=== PATIENT | female | born 1990 | race Caucasian/White ===

== ENCOUNTER 2016-03-07 15:46 | Emergency (ER) | payer BC ==
[2016-03-07 19:05] VITALS: BP 117/81
--- NOTE | 2016-03-07 19:39 | UC ---
Throat Pain/Nasal Jose Maria HPI - HPI Summary HPI Summary: THREE DAYS OF WORSENING SORE THROAT AND REDNESS. NO FEVER. NO RASHES. NO ABDOMINAL PAIN. - History of Current Complaint Chief Complaint: UCGeneralIllness Stated Complaint: SORE THROAT Time Seen by Provider: 03/07/16 19:01 Hx Obtained From: Patient Hx Last Menstrual Period: 02/15/16 Onset/Duration: Gradual Onset, Lasting Days, Still Present Severity: Mild Cough: None Associated Signs & Symptoms: Positive: Dysphagia, Hoarseness - Epiglottits Risk Factors Epiglottis Risk Factors: Negative - Allergies/Home Medications Allergies/Adverse Reactions: Allergies Allergy/AdvReac Type Severity Reaction Status Date / Time Bacitracin [From Neosporin] Allergy Hives Verified 06/16/15 19:19 Iodine Allergy Anaphylatic Verified 03/07/16 18:52 Shock Neomycin [From Neosporin] Allergy Hives Verified 06/16/15 19:19 Polymyxin B [From Neosporin] Allergy Hives Verified 06/16/15 19:19 IV CONTRAST Allergy Anaphylatic Uncoded 03/07/16 18:52 Shock Home Medications: Home Medications Fluticasone-Salmeterol 100-50* [Advair Diskus 100-50*] 1 puff INH BID 03/07/16 [ History Confirmed 03/07/16] PMH/Surg Hx/FS Hx/Imm Hx Previously Healthy: Yes Respiratory History Of: Reports: Asthma - Surgical History Surgical History: None - Family History Known Family History: Positive: None Negative: Respiratory Disease - Social History Occupation: Student Alcohol Use: Weekly Substance Use Type: None Smoking Status (MU): Never Smoked Tobacco Review of Systems Constitutional: Negative Skin: Negative Eyes: Negative ENT: Sore Throat Respiratory: Negative Cardiovascular: Negative Gastrointestinal: Negative Genitourinary: Negative Motor: Negative Neurovascular: Negative Musculoskeletal: Negative Neurological: Negative Psychological: Negative All Other Systems Reviewed And Are Negative: Yes Physical Exam Triage Information Reviewed: Yes Appearance: Well-Appearing, No Pain Distress, Well-Nourished Vital Signs: Initial Vital Signs Temp 98.1 F 03/07/16 18:49 Pulse 80 03/07/16 18:49 Resp 16 03/07/16 18:49 BP 117/81 03/07/16 18:49 Pulse Ox 99 03/07/16 18:49 Vital Signs Reviewed: Yes Eye Exam: Normal ENT: Positive: Hearing grossly normal, Pharyngeal erythema, TMs normal, Tonsillar swelling Dental Exam: Normal Neck exam: Normal Neck: Positive: Supple, Nontender Respiratory Exam: Normal Respiratory: Positive: Chest non-tender, Lungs clear, Normal breath sounds, No respiratory distress Cardiovascular Exam: Normal Cardiovascular: Positive: RRR, No Murmur, Pulses Normal Abdominal Exam: Normal Abdomen Description: Positive: Nontender, No Organomegaly Musculoskeletal Exam: Normal Neurological Exam: Normal Psychological Exam: Normal Skin Exam: Normal Throat Pain/Nasal Course/Dx - Differential Dx/Diagnosis Differential Diagnosis/HQI/PQRI: Pharyngitis, Sinusitis, URI Provider Diagnoses: TONSILLITIS. VIRAL SYNDROME Discharge - Discharge Plan Condition: Stable Disposition: HOME Patient Education Materials: Tonsillitis (ED), Viral Syndrome (ED) Forms: *School Release Referrals: Jody Vale [Primary Care Provider] -
== END 2016-03-07 19:47 | disposition home or self-care (01) ==
LOC: UCCORT 15:46
DX: J03.90 Acute tonsillitis, unspecified (principal); B34.9 Viral infection, unspecified; Z91.041 Radiographic dye allergy status
CPT/HCPCS: 87651; 99211; G0463

== ENCOUNTER 2016-05-16 18:57 | Emergency (ER) | payer BC ==
[2016-05-16 20:19] VITALS: BP 124/87
--- NOTE | 2016-05-16 20:31 | UC ---
Skin Complaint HPI - HPI Summary HPI Summary: History of shingles onright side of face, she is getting the same pain, some mild redness noted. eye pain and ear pain. - History of Current Complaint Chief Complaint: UCSkin Time Seen by Provider: 05/16/16 20:19 Stated Complaint: SKIN COMPLAINT (HX OF SHINGLES) Hx Obtained From: Patient Hx Last Menstrual Period: 05/07/16 Onset/Duration: Sudden Onset, Lasting Days Skin Exposure Onset/Duration: Days Ago Timing: Constant Onset Severity: Moderate Current Severity: Moderate Location: Generalized - right side of face Character: Pruritus, Redness Aggravating: Nothing Alleviating: Nothing - Allergy/Home Medications Allergies/Adverse Reactions: Allergies Allergy/AdvReac Type Severity Reaction Status Date / Time Bacitracin [From Neosporin] Allergy Hives Verified 05/16/16 20:15 Iodine Allergy Anaphylatic Verified 05/16/16 20:15 Shock Neomycin [From Neosporin] Allergy Hives Verified 05/16/16 20:15 Polymyxin B [From Neosporin] Allergy Hives Verified 05/16/16 20:15 IV CONTRAST Allergy Anaphylatic Uncoded 05/16/16 20:15 Shock Home Medications: Home Medications Fexofenadine-Pseudoephedrine [Maira-D 24 Hour Allergy 180-240 mg] 1 tab DAILY 05/16/16 [History Confirmed 05/16/16] Review of Systems Constitutional: Negative Skin: Other - redness Eyes: Negative, Other - pain ENT: Negative, Ear Ache, Other Respiratory: Negative Cardiovascular: Negative Gastrointestinal: Negative Genitourinary: Negative Motor: Negative Neurovascular: Negative Musculoskeletal: Negative Neurological: Negative Psychological: Negative All Other Systems Reviewed And Are Negative: Yes PMH/Surg Hx/FS Hx/Imm Hx Previously Healthy: Yes Respiratory History Of: Reports: Asthma - Surgical History Surgical History: None - Family History Known Family History: Negative: Hypertension, Respiratory Disease - Social History Alcohol Use: Occasionally Substance Use Type: None Smoking Status (MU): Never Smoked Tobacco - Immunization History Most Recent Influenza Vaccination: 2016 Most Recent Tetanus Shot: UTD Most Recent Pneumonia Vaccination: N/A Physical Exam Triage Information Reviewed: Yes Appearance: Well-Appearing, Well-Nourished, Pain Distress Vital Signs: Initial Vital Signs Temp 97.9 F 05/16/16 20:16 Pulse 87 05/16/16 20:16 Resp 18 05/16/16 20:16 BP 124/87 05/16/16 20:16 Pulse Ox 100 05/16/16 20:16 Vital Signs Reviewed: Yes Eye Exam: Normal Eyes: Positive: Conjunctiva Clear ENT Exam: Normal ENT: Positive: Hearing grossly normal, Pharynx normal, TMs normal Dental Exam: Normal Neck exam: Normal Neck: Positive: Supple, Nontender, No Lymphadenopathy Respiratory Exam: Normal Respiratory: Positive: Chest non-tender, Lungs clear, Normal breath sounds Cardiovascular Exam: Normal Cardiovascular: Positive: RRR, No Murmur, Pulses Normal Abdominal Exam: Normal Abdomen Description: Positive: Nontender, No Organomegaly, Soft Bowel Sounds: Positive: Present Musculoskeletal Exam: Normal Musculoskeletal: Positive: Strength Intact, ROM Intact, No Edema Neurological Exam: Normal Neurological: Positive: Alert, Muscle Tone Normal, Other: - PERRLA, Skin: Positive: Other - red rash onted on side of face, no blisters described as itchy and painful Course/Dx - Course Course Of Treatment: hx obtained, exam performed, meds reviewed, HX of shingles along that dermatome last year, patient states the pain and itching feel the same. Started on Valtrex and recommend close F/U with her PCP. - Differential Diagnoses - Skin Complaint Differential Diagnoses: Angioedema, Cellulitis, Contact Dermatitis, Varicella Zoster - Diagnoses Provider Diagnoses: rash. pruritis. possible shingles Discharge - Discharge Plan Condition: Stable Disposition: HOME Prescriptions: ValACYclovir (*) [Valtrex 1 GM(*)] 1 gm PO TID #21 tab Patient Education Materials: Shingles (ED) Referrals: Jody Vale [Primary Care Provider] - Additional Instructions: Take the Valtrex as prescribed. I recommend close follow up with you PCP for pain control and monitoring of symptoms.
== END 2016-05-16 20:30 | disposition home or self-care (01) ==
LOC: UCCORT 18:57
DX: R21 Rash and other nonspecific skin eruption (principal); L29.9 Pruritus, unspecified; J45.909 Unspecified asthma, uncomplicated; Z91.041 Radiographic dye allergy status
CPT/HCPCS: 99212; G0463

== ENCOUNTER 2016-05-21 09:33 | Emergency (ER) | payer BC ==
[2016-05-21 10:30] VITALS: BP 119/81
[2016-05-21] MEDS ORDERED: Tetracaine 0.5% OPTH.SOL 4 ML* 1 DROP BTL ONE (10:44)
[2016-05-21] MEDS ORDERED: Fluorescein Sodium TOPICAL* 1 MG TEST ONE (10:44)
[2016-05-21] MEDS ORDERED: BSS OPTH.SOL* BTL ONE (10:44)
--- NOTE | 2016-05-21 11:47 | UC ---
Eye Complaint HPI - HPI Summary HPI Summary: DIAGNOSED WITH SHINGLES 05/16/16 FOR RIGHT EYE COMPLAINTS AND HISTORY OF SHINGLES IN THE PAST. PUT ON VALCYCLOVIR. HAS BEEN HAVING NAUSEA WITH MEDICATION , WELL PAIN AND PARESTHESIAS IN RIGHT SIDE OF FACE THAT HAVE GONE UNCHANGED WITH TREATMENT. - History of Current Complaint Chief Complaint: UCSkin Stated Complaint: RE CHECK SHINGLES Time Seen by Provider: 05/21/16 10:26 Hx Obtained From: Patient Hx Last Menstrual Period: 05/07/16 Onset/Duration: Sudden Onset, Lasting Days, Still Present Timing: Intermittent Episode Lasting Severity Initially: Mild Severity Currently: Moderate Pain Intensity: 0 Pain Scale Used: 0-10 Numeric Location of Injury: Other - LATERAL RIGHT SIDE OF FACE NEAR RIGHT EYE Character: Dull - BURNING AND TINGLING Aggravating Factor(s): Nothing Alleviating Factor(s): Nothing Associated Signs And Symptoms: Positive: Negative Related History: Similar Episode - SHINGLES RIGHT FACE - Risk Factors Penetrating Injury Risk Factor: Negative Acute Glaucoma Risk Factors: Negative Optic Artery Occlusion Risk Factors: Negative - Allergies/Home Medications Allergies/Adverse Reactions: Allergies Allergy/AdvReac Type Severity Reaction Status Date / Time Bacitracin [From Neosporin] Allergy Hives Verified 05/21/16 10:23 Iodine Allergy Anaphylatic Verified 05/21/16 10:23 Shock Neomycin [From Neosporin] Allergy Hives Verified 05/21/16 10:23 Polymyxin B [From Neosporin] Allergy Hives Verified 05/21/16 10:23 IV CONTRAST Allergy Anaphylatic Uncoded 05/21/16 10:23 Shock Home Medications: Home Medications Acetaminophen [Acetaminophen Extra Stren] 1,000 mg PO Q6H PRN 05/21/16 [History Confirmed 05/21/16] Albuterol HFA INHALER* [Ventolin HFA Inhaler*] 1 - 2 puff INH Q4H PRN 05/21/16 [ History Confirmed 05/21/16] Capsaicin 0.025% CREAM* [Zostrix 0.025% CREAM*] 1 applic TOPICAL QID PRN [History Confirmed 05/21/16] Epinephrine [Epipen 2-James] 0.3 mg IM SEE INSTRUCTIONS PRN 05/21/16 [History Confirmed 05/21/16] Ibuprofen TAB* [Advil TAB*] 800 mg PO Q6H PRN 05/21/16 [History Confirmed ] PMH/Surg Hx/FS Hx/Imm Hx Previously Healthy: Yes Respiratory History Of: Reports: Asthma - Surgical History Surgical History: None - Family History Known Family History: Negative: Hypertension, Respiratory Disease - Social History Occupation: Student Lives: With Family Alcohol Use: Occasionally Substance Use Type: None Smoking Status (MU): Never Smoked Tobacco - Immunization History Most Recent Influenza Vaccination: October 2015 Most Recent Tetanus Shot: UTD Most Recent Pneumonia Vaccination: N/A Review of Systems Constitutional: Negative Skin: Negative Eyes: Negative ENT: Negative Respiratory: Negative Cardiovascular: Negative Gastrointestinal: Negative Genitourinary: Negative Motor: Negative Neurovascular: Negative Musculoskeletal: Negative Neurological: Paresthesia - RIGHT SUPERIOLATERAL FACE Psychological: Negative All Other Systems Reviewed And Are Negative: Yes Physical Exam Triage Information Reviewed: Yes Appearance: Well-Appearing, No Pain Distress, Well-Nourished Vital Signs: Initial Vital Signs Temp 98.5 F 05/21/16 10:19 Pulse 82 05/21/16 10:19 Resp 16 05/21/16 10:19 BP 119/81 05/21/16 10:19 Pulse Ox 100 05/21/16 10:19 Vital Signs Reviewed: Yes Eye Exam: Normal ENT Exam: Normal ENT: Positive: Normal ENT inspection, Hearing grossly normal, Pharynx normal, TMs normal Dental Exam: Normal Neck exam: Normal Neck: Positive: Supple, Nontender, No Lymphadenopathy Respiratory Exam: Normal Respiratory: Positive: Chest non-tender, Lungs clear, Normal breath sounds, No respiratory distress, No accessory muscle use Cardiovascular Exam: Normal Cardiovascular: Positive: RRR, No Murmur Abdominal Exam: Normal Musculoskeletal Exam: Normal Musculoskeletal: Positive: Strength Intact, ROM Intact Neurological Exam: Normal Psychological Exam: Normal Skin Exam: Normal Eye Complaint Course/Dx - Course Course Of Treatment: ANTIVIRAL MEDICATION SWITCHED DUE TO NAUSEA. 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
== END 2016-05-21 11:20 | disposition home or self-care (01) ==
LOC: UCCORT 09:33
DX: B02.29 Other postherpetic nervous system involvement (principal); B02.9 Zoster without complications
CPT/HCPCS: 99212; A9270-GY; G0463

== ENCOUNTER → 2016-06-16 18:25 | Emergency (ER) | payer SELFPAY ==
[~2016-06-16 18:25] MED LIST: PPD test dose* 5 TU/0.1 ML TEST (*USE PPD ORDER SET*) INTRADERM ONE
== END | disposition home or self-care (01) ==
LOC: OHCORT 18:25 → UCCORT 18:25
DX: Z11.1 Encounter for screening for respiratory tuberculosis (principal)

== ENCOUNTER 2016-08-23 15:16 | Emergency (ER) | payer BC ==
[2016-08-23 15:29] VITALS: BP 129/76
--- NOTE | 2016-08-23 15:38 | UC ---
Complaint Female HPI - HPI Summary HPI Summary: complaint of seen in ED 08/16/16 left flank pain, dx with kidney stone,infection and UTI- sent home on macrobid,zofran and vicodin currently still having pain with urination , increased urgency, left flank pain and nausea taking ibuprofen for pain for without much relief intermittent fever since last week intermittent suprapubic pain poor appetite but able to drink fluids without difficulty has apt with PCP but not until monday08/26/16 - History Of Current Complaint Chief Complaint: UCGU Stated Complaint: LFT LOWER BACK PAIN/URINARY Hx Obtained From: Patient Hx Last Menstrual Period: 08/02/16 - Allergies/Home Medications Allergies/Adverse Reactions: Allergies Allergy/AdvReac Type Severity Reaction Status Date / Time Bacitracin [From Neosporin] Allergy Hives Verified 08/23/16 15:20 Iodine Allergy Anaphylatic Verified 08/23/16 15:20 Shock Neomycin [From Neosporin] Allergy Hives Verified 08/23/16 15:20 Polymyxin B [From Neosporin] Allergy Hives Verified 08/23/16 15:20 IV CONTRAST Allergy Anaphylatic Uncoded 08/23/16 15:20 Shock Home Medications: Home Medications Budesonide/Formote 160/4.5(NF) [Symbicort 160/4.5 (NF)] 1 puff INH BID 08/23/16 [History Confirmed 08/23/16] Ibuprofen TAB* [Advil TAB*] 600 mg PO Q6H PRN 08/23/16 [History Confirmed ] LevoCETirizine TAB (NF) [Xyzal TAB (NF)] 5 mg PO DAILY 08/23/16 [History Confirmed 08/23/16] busPIRone TAB* [Buspar TAB*] 5 mg PO DAILY 08/23/16 [History Confirmed 08/23/16] hydrOXYzine HCL TAB* [Atarax 10 MG TAB*] 10 mg PO TID PRN 08/23/16 [History Confirmed 08/23/16] PMH/Surg Hx/FS Hx/Imm Hx Previously Healthy: No - UTI, pyleonephritis, kidney stones Respiratory History: Asthma Psychological History: Anxiety, Depression - Surgical History Surgical History: None - Family History Known Family History: Negative: Hypertension, Diabetes, Respiratory Disease - Social History Occupation: Student Lives: With Family Alcohol Use: Occasionally Substance Use Type: None Smoking Status (MU): Never Smoked Tobacco - Immunization History Most Recent Influenza Vaccination: October 2015 Most Recent Tetanus Shot: UTD Most Recent Pneumonia Vaccination: N/A Review of Systems Constitutional: Fever, Chills Skin: Negative Eyes: Negative ENT: Negative Respiratory: Negative Cardiovascular: Negative Gastrointestinal: Abdominal Pain Genitourinary: Dysuria, Frequency, Urgency Motor: Negative Neurovascular: Negative Musculoskeletal: Negative Neurological: Negative Psychological: Negative All Other Systems Reviewed And Are Negative: Yes Physical Exam Triage Information Reviewed: Yes Appearance: Well-Appearing, No Pain Distress, Well-Nourished Vital Signs: Initial Vital Signs Temp 99.5 F 08/23/16 15:24 Pulse 89 08/23/16 15:24 Resp 18 08/23/16 15:24 BP 129/76 08/23/16 15:24 Pulse Ox 100 08/23/16 15:24 Vital Signs Reviewed: Yes Eyes: Positive: Conjunctiva Clear ENT: Positive: Pharynx normal, TMs normal Neck: Positive: No Lymphadenopathy Respiratory: Positive: Lungs clear, Normal breath sounds, No respiratory distress, No accessory muscle use Cardiovascular: Positive: RRR, No Murmur, Pulses Normal, Brisk Capillary Refill Abdomen Description: Positive: Nontender, No Organomegaly, Soft, CVA Tenderness (L). Negative: CVA Tenderness (R), Distended, Guarding Bowel Sounds: Positive: Present Musculoskeletal: Positive: No Edema Neurological: Positive: Alert Psychological Exam: Normal Skin Exam: Normal Complaint Female Dx - Course Course Of Treatment: exam completed. UA positive for leuks- pt has left CVA tenderness- pt refuses to be seen in ED today. will change antibiotic to cipro - discussed blackbox warning , followup with urology carina,. discussed at length that if patient symptoms do not improve in 24 hours or if they worsen she needs to seek care in the emergency department and she states understanding - Differential Dx/Diagnosis Differential Diagnosis/HQI/PQRI: Ureteral Stone, Urinary Tract Infection, Other - pyleonephritis Provider Diagnoses: URI, pyleonephriritis Discharge - Discharge Plan Condition: Stable Disposition: HOME Prescriptions: Ciprofloxacin TAB* [Cipro 500 MG TAB*] 500 mg PO BID #14 tab HYDROcodone/ACETAMIN 5-325 MG* [[place] 5-325 TAB*] 1 tab PO Q4H PRN #12 tab MDD 6 PRN Reason: Pain Ondansetron TAB* [Zofran 4 MG Tab*] 4 mg PO Q6H PRN #12 tab PRN Reason: Nausea Patient Education Materials: Urinary Tract Infection in Women (ED), Kidney Stones (ED), Kidney Infection (ED) Referrals: Jody Vale [Primary Care Provider] - Julius Muro MD [Medical Doctor] - Additional Instructions: Please start antibiotic as directed take zofran as directed so you can increase your fluid intake If you do not feel better in 24 hours or your symptoms worsen you must be seen in the emergency department. Increase fluids and rest Take vicodin or tylenol as needed for fever or pain Call urologist in the morning for followup evaluation and treatment
[2016-08-23 19:47] LABS: Hematocrit 42 % (35-47); Hemoglobin 13.8 g/dl (12.0-16.0); Mean Corpuscular HGB Conc 33 g/dl (31-36); Mean Corpuscular Hemoglobin 31 pg (27-31); Mean Corpuscular Volume 95 fL (80-97); Mean Platelet Volume 8 um3 (7.4-10.4); Red Cell Distribution Width 13 % (10.5-15); White Blood Count 6.4 10^3/ul (3.5-10.8)
== END 2016-08-23 16:18 | disposition home or self-care (01) ==
LOC: UCCORT 15:16
DX: N39.0 Urinary tract infection, site not specified (principal); N12 Tubulo-interstitial nephritis, not specified as acute or chronic; F41.9 Anxiety disorder, unspecified; F32.9 Major depressive disorder, single episode, unspecified
CPT/HCPCS: 36415; 81003; 85025; 87086; 99212; G0463

== ENCOUNTER 2016-10-06 15:02 | Emergency (ER) | payer BC ==
[2016-10-06 15:34] VITALS: BP 115/73
--- NOTE | 2016-10-06 15:56 | UC ---
Ear Complaint HPI - HPI Summary HPI Summary: Pt presents with c/o left ear pain. Pt was diagnosed with "kidney infection" on 10/05/16 in [place], [place]. She started takin gPO cipro and now presents with c/ o left ear pain, dizziness and headache. - History of Current Complaint Chief Complaint: UCEar Stated Complaint: LEFT EAR PAIN Time Seen by Provider: 10/06/16 15:40 Hx Obtained From: Patient Hx Last Menstrual Period: 09/28/16 ?: No Onset/Duration: Sudden Onset, Lasting Hours, Still Present Severity Initially: Mild Severity Currently: Moderate - Allergies/Home Medications Allergies/Adverse Reactions: Allergies Allergy/AdvReac Type Severity Reaction Status Date / Time Bacitracin [From Neosporin] Allergy Hives Verified 10/06/16 15:28 Iodine Allergy Anaphylatic Verified 10/06/16 15:28 Shock Neomycin [From Neosporin] Allergy Hives Verified 10/06/16 15:28 Polymyxin B [From Neosporin] Allergy Hives Verified 10/06/16 15:28 IV CONTRAST Allergy Anaphylatic Uncoded 10/06/16 15:28 Shock PMH/Surg Hx/FS Hx/Imm Hx Previously Healthy: No - recetnly diagnosed with kidney infection - Surgical History Surgical History: None - Family History Known Family History: Negative: Hypertension, Diabetes, Respiratory Disease - Social History Occupation: Student Lives: With Family Alcohol Use: Occasionally Substance Use Type: None Smoking Status (MU): Never Smoked Tobacco - Immunization History Most Recent Influenza Vaccination: October 2015 Most Recent Tetanus Shot: UTD Most Recent Pneumonia Vaccination: N/A Review of Systems Constitutional: Chills, Fatigue Skin: Negative Eyes: Negative ENT: Ear Ache - left ear Respiratory: Negative Cardiovascular: Negative Gastrointestinal: Negative Genitourinary: Negative Motor: Negative Neurovascular: Negative Musculoskeletal: Negative Neurological: Other - dizziness Psychological: Negative All Other Systems Reviewed And Are Negative: Yes Physical Exam Triage Information Reviewed: Yes Appearance: Well-Appearing Vital Signs: Initial Vital Signs Temp 98.6 F 10/06/16 15:30 Pulse 80 10/06/16 15:30 Resp 16 10/06/16 15:30 BP 115/73 10/06/16 15:30 Pulse Ox 99 10/06/16 15:30 Vital Signs Reviewed: Yes Eye Exam: Normal ENT Exam: Normal Dental Exam: Normal Neck exam: Normal Respiratory Exam: Normal Cardiovascular Exam: Normal Abdominal Exam: Other Abdomen Description: Positive: CVA Tenderness (L) Musculoskeletal Exam: Normal Neurological Exam: Normal Psychological Exam: Normal Skin Exam: Normal Ear Complaint Course/Dx - Differential Dx/Diagnosis Provider Diagnoses: left ear ache possible adverse reaction to Cipro. Pt was instructed to follow up with her Urologist as soon as possible Discharge - Discharge Plan Condition: Stable Disposition: HOME Prescriptions: Cephalexin CAP* [Keflex 500 CAP*] 500 mg PO Q8H #30 cap Patient Education Materials: Earache (ED), Adverse Drug Reaction (ED) Referrals: Jody Vale [Primary Care Provider] - As Soon As Possible Additional Instructions: Pleae follow up with the urologist as previously scheduled. If your symptoms worsen please seek care at the closest healthcare facility.
== END 2016-10-06 16:01 | disposition home or self-care (01) ==
LOC: UCCORT 15:02
DX: H92.02 Otalgia, left ear (principal); R42 Dizziness and giddiness; R51 Headache; N15.9 Renal tubulo-interstitial disease, unspecified; Z88.3 Allergy status to other anti-infective agents; Z91.041 Radiographic dye allergy status
CPT/HCPCS: 99212; G0463

== ENCOUNTER → 2016-10-31 17:45 | Emergency (ER) | payer BC ==
--- NOTE | 2016-10-31 18:16 | UC ---
Respiratory Complaint HPI - HPI Summary HPI Summary: PATIENT LEFT WITHOUT BEING SEEN. - History of Current Complaint Stated Complaint: ASTHMA Time Seen by Provider: 10/31/16 18:15 Hx Last Menstrual Period: 09/28/16 - Allergies/Home Medications Allergies/Adverse Reactions: Allergies Allergy/AdvReac Type Severity Reaction Status Date / Time Bacitracin [From Neosporin] Allergy Hives Verified 10/31/16 20:00 Iodine Allergy Anaphylatic Verified 10/31/16 20:00 Shock Neomycin [From Neosporin] Allergy Hives Verified 10/31/16 20:00 Polymyxin B [From Neosporin] Allergy Hives Verified 10/31/16 20:00 IV CONTRAST Allergy Anaphylatic Uncoded 10/31/16 20:00 Shock PMH/Surg Hx/FS Hx/Imm Hx - Surgical History Surgical History: None - Family History Known Family History: Negative: Hypertension, Diabetes, Respiratory Disease - Social History Alcohol Use: Occasionally Substance Use Type: None Smoking Status (MU): Never Smoked Tobacco - Immunization History Most Recent Influenza Vaccination: October 2015 Most Recent Tetanus Shot: UTD Most Recent Pneumonia Vaccination: N/A Review of Systems Constitutional: Negative Skin: Negative Eyes: Negative ENT: Negative Respiratory: Negative Cardiovascular: Negative Gastrointestinal: Negative Genitourinary: Negative Motor: Negative Neurovascular: Negative Musculoskeletal: Negative Neurological: Negative Psychological: Negative All Other Systems Reviewed And Are Negative: Yes Physical Exam Triage Information Reviewed: Yes Eye Exam: Normal ENT Exam: Normal Dental Exam: Normal Neck exam: Normal Neck: Positive: 1 Respiratory Exam: Normal Cardiovascular Exam: Normal Abdominal Exam: Normal Musculoskeletal Exam: Normal Neurological Exam: Normal Psychological Exam: Normal Skin Exam: Normal Respiratory Course/Dx - Differential Dx/Diagnosis Provider Diagnoses: ASTHMA. PATIENT LEFT WITHOUT BEING SEEN. Discharge - Discharge Plan Condition: Stable Disposition: HOME Referrals: Jody Vale [Primary Care Provider] -
== END | disposition left against medical advice (07) ==
LOC: UCCORT 17:45
DX: J45.909 Unspecified asthma, uncomplicated (principal); Z53.21 Procedure and treatment not carried out due to patient leaving prior to being seen by health care provider

== ENCOUNTER 2016-10-31 19:11 | Emergency (ER) | payer BC ==
[2016-10-31 20:00] VITALS: BP 120/79
--- NOTE | 2016-10-31 20:18 | UC ---
Respiratory Complaint HPI - HPI Summary HPI Summary: 25 YEAR OLD FEMALE WITH ASTHMA PRESENTS WITH COMPLAINS OF COUGH AND WHEEZING. - History of Current Complaint Chief Complaint: UCRespiratory Stated Complaint: COUGH Time Seen by Provider: 10/31/16 20:17 Hx Obtained From: Patient Hx Last Menstrual Period: 10/30/16 Onset/Duration: Sudden Onset Severity Initially: Moderate Severity Currently: Moderate Pain Scale Used: 0-10 Numeric - 5 Character: Cough: Nonproductive Aggravating Factors: Deep Breaths Alleviating Factors: Bronchodilator - Allergies/Home Medications Allergies/Adverse Reactions: Allergies Allergy/AdvReac Type Severity Reaction Status Date / Time Bacitracin [From Neosporin] Allergy Hives Verified 10/31/16 20:00 Iodine Allergy Anaphylatic Verified 10/31/16 20:00 Shock Neomycin [From Neosporin] Allergy Hives Verified 10/31/16 20:00 Polymyxin B [From Neosporin] Allergy Hives Verified 10/31/16 20:00 IV CONTRAST Allergy Anaphylatic Uncoded 10/31/16 20:00 Shock PMH/Surg Hx/FS Hx/Imm Hx Previously Healthy: Yes - Surgical History Surgical History: None - Family History Known Family History: Negative: Hypertension, Diabetes, Respiratory Disease - Social History Alcohol Use: Rare Substance Use Type: None Smoking Status (MU): Never Smoked Tobacco - Immunization History Most Recent Influenza Vaccination: 10/2016 Most Recent Tetanus Shot: UTD Most Recent Pneumonia Vaccination: N/A Review of Systems Constitutional: Negative Skin: Negative Eyes: Negative ENT: Negative Respiratory: Shortness Of Breath, Cough Cardiovascular: Negative Gastrointestinal: Negative Genitourinary: Negative Motor: Negative Neurovascular: Negative Musculoskeletal: Negative Neurological: Negative Psychological: Negative All Other Systems Reviewed And Are Negative: Yes Physical Exam Triage Information Reviewed: Yes Vital Signs: Initial Vital Signs Temp 36.9 C 10/31/16 19:55 Pulse 87 10/31/16 19:55 Resp 18 10/31/16 19:55 BP 120/79 10/31/16 19:55 Pulse Ox 97 10/31/16 19:55 Eye Exam: Normal ENT Exam: Normal Dental Exam: Normal Neck exam: Normal Neck: Positive: 1 Respiratory: Positive: Rhonchi, Wheezing Cardiovascular Exam: Normal Abdominal Exam: Normal Musculoskeletal Exam: Normal Neurological Exam: Normal Psychological Exam: Normal Skin Exam: Normal UC Diagnostic Evaluation - Laboratory O2 Sat by Pulse Oximetry: 97 Respiratory Course/Dx - Differential Dx/Diagnosis Provider Diagnoses: COUGH. WHEEZING Discharge - Discharge Plan Condition: Stable Disposition: HOME Prescriptions: Albuterol HFA INHALER* [Ventolin HFA Inhaler*] 1 puff INH Q6H PRN #1 mdi PRN Reason: Wheezing Amoxicillin/Clavulanate TAB* [Augmentin TAB 875*] 875 mg PO BID #20 tab Methylprednisolone [Medrol Dosepak 4 MG*] 4 mg PO .SEE KATJA INSTRUCTION #21 tab Patient Education Materials: Asthma (ED) Referrals: Jody Vale [Primary Care Provider] -
== END 2016-10-31 20:26 | disposition home or self-care (01) ==
LOC: UCCORT 19:11
DX: R05 Cough (principal); R06.2 Wheezing; R06.02 Shortness of breath; Z88.3 Allergy status to other anti-infective agents; Z91.041 Radiographic dye allergy status
CPT/HCPCS: 99212; G0463

== ENCOUNTER 2016-11-16 17:25 | Emergency (ER) | payer BC ==
[2016-11-16] MEDS ORDERED: Albuterol/Ipratropium NEB.SOL* Albuterol 2.5 MG/Ipratropium 0.5 MG 3 ML INH ONE (19:28)
--- NOTE | 2016-11-16 19:32 | UC ---
FLU HPI - HPI Summary HPI Summary: 25 female presents to [facility] with complaints of headache, body aches, coughing and nasal congestion since Monday, 5 days ago. Patient states she also had a low grade fever of 100F this morning. She has been taking advil, with last dose being 2 hours ago. Patient denies vomiting, diarrhea. Was seen at PCP yesterday given virtussin and tessalon pearls. Already taking xyzal, using flonase and inhaler. Has asthma. Cough is dry and non productive. No other PMHx. No other complaints at this time. - History of Current Complaint Chief Complaint: UCGeneralIllness Stated Complaint: HEADACHE/FATIGUE/COUGH/FEVER/BODY ACHES Time Seen by Provider: 11/16/16 18:59 Hx Obtained From: Patient Hx Last Menstrual Period: 10/24/2016 Onset/Duration: Sudden Onset, Lasting Days Severity Currently: Mild Severity Initially: Moderate Pain Intensity: 5 Pain Scale Used: 0-10 Numeric Associated Signs & Symptoms: Positive: Fever - 100, Cough, Nasal Congestion, Headache - Allergy/Home Medications Allergies/Adverse Reactions: Allergies Allergy/AdvReac Type Severity Reaction Status Date / Time Bacitracin [From Neosporin] Allergy Hives Verified 10/31/16 20:00 Iodine Allergy Anaphylatic Verified 11/16/16 18:57 Shock Neomycin [From Neosporin] Allergy Hives Verified 11/16/16 18:57 Polymyxin B [From Neosporin] Allergy Hives Verified 11/16/16 18:57 IV CONTRAST Allergy Anaphylatic Uncoded 11/16/16 18:57 Shock PMH/Surg Hx/FS Hx/Imm Hx - Additional Past Medical History Additional PMH: Denies DM and HTN Respiratory History: Asthma - Surgical History Surgical History: None - Family History Known Family History: Negative: Hypertension, Diabetes, Respiratory Disease - Social History Alcohol Use: Rare Substance Use Type: None Smoking Status (MU): Never Smoked Tobacco - Immunization History Most Recent Influenza Vaccination: 10/2016 Most Recent Tetanus Shot: UTD Most Recent Pneumonia Vaccination: N/A Review of Systems Constitutional: Fever, Fatigue Skin: Negative ENT: Ear Ache, Nasal Discharge Respiratory: Cough Cardiovascular: Negative Gastrointestinal: Nausea Motor: Negative Musculoskeletal: Myalgia Neurological: Headache All Other Systems Reviewed And Are Negative: Yes Physical Exam Triage Information Reviewed: Yes Appearance: Well-Appearing - coughing throughout exam, No Pain Distress, Well- Nourished Vital Signs: Initial Vital Signs Temp 98.5 F 11/16/16 18:51 Pulse 111 11/16/16 18:51 Resp 18 11/16/16 18:51 BP 118/76 11/16/16 18:51 Pulse Ox 99 11/16/16 18:51 tachycardia noted non hypoxic , afebrile Vital Signs Reviewed: Yes Eyes: Positive: Conjunctiva Clear ENT: Positive: Hearing grossly normal, Pharynx normal, TMs normal, Other: - airway patent. Negative: Pharyngeal erythema, Nasal congestion, Nasal drainage , Tonsillar swelling, Tonsillar exudate Dental: Negative: Percussion Tenderness @, Cervical Lymphadenopathy Neck: Positive: Supple, Nontender, No Lymphadenopathy Respiratory: Positive: Chest non-tender, Lungs clear, Normal breath sounds, No respiratory distress, No accessory muscle use, Wheezing - mild lower b/l with expiration, Expiration, Other: - coughing throughout exam that sounds bronchospastic. Negative: Respiratory distress, Crackles, Rhonchi Cardiovascular: Positive: RRR, No Murmur, Pulses Normal, Brisk Capillary Refill - < 2 seconds, Tachycardia Abdomen Description: Positive: Nontender, Soft Bowel Sounds: Positive: Present Musculoskeletal: Positive: Strength Intact, ROM Intact Neurological: Positive: Muscle Tone Normal Psychological: Positive: Normal Response To Family Skin Exam: Normal Re-Evaluation - Re-Evaluation First Eval Re-Evaluation Time: 19:50 Change: Improved - had relief after duoneb, lungs CTA b/l Flu Course/Dx - Course Course Of Treatment: continue use of xyzal, flonase and cough medication. recommended mucinex. steroid prescribed. increase use of inhaler and use nebulizer if able. does not appear to require antibiotics at this time. No concern for pneumonia, requiring chest x ray. aware of worsening signs and symptoms to watch out for. no concern for other cardiorespiratory etiology at this time due to PE findings, HPI and normal vitals other than slight tachycardia. appears to be suffering from bronchitis/bronchospasm. Had relief from duoneb. Has been taking virtussin. no concern for PE. Follow up with pcp, espiecially if symptoms do not improve. - Differential Dx/Diagnosis Differential Diagnosis/HQI/PQRI: Bronchitis, Broncholiolitis, Influenza, Upper Respiratory Infection Provider Diagnoses: acute bronchitis Discharge - Discharge Plan Condition: Stable Disposition: HOME Prescriptions: methylPREDNISolone TAB* [Medrol TAB*] 4 - 8 mg PO .SEE KATJA #1 katja Patient Education Materials: Acute Bronchitis (ED), Bronchospasm (ED) Forms: *School Release Referrals: Jody Vale [Primary Care Provider] - Additional Instructions: Take prescribed steroid to help with cough and bronchospasm. Continue cough medication as directed, suggested at bedtime to help with sleeping. Increase use of inhaler and use nebulizer if available. Continue tylenol/motrin for headache and body aches. Drink plenty of fluids and get plenty of rest. If symptoms worsen or do not improve please seek medical attention. Give 2-3weeks for significant improvement.
[2016-11-16 19:48] VITALS: BP 106/76
== END 2016-11-16 20:03 | disposition home or self-care (01) ==
LOC: UCCORT 17:25
DX: J20.9 Acute bronchitis, unspecified (principal); J45.909 Unspecified asthma, uncomplicated
CPT/HCPCS: 87502; 99212; A9270-GY; G0463

== ENCOUNTER 2017-03-18 11:57 | Emergency (ER) | payer BC ==
[2017-03-18 15:26] VITALS: BP 129/86
--- NOTE | 2017-03-18 15:44 | UC ---
Ear Complaint HPI - HPI Summary HPI Summary: 26 yo female had flu 2 weeks ago no with left ear pressure and pain as well as dizziness - History of Current Complaint Chief Complaint: UCEar Stated Complaint: LEFT EAR PAIN Time Seen by Provider: 03/18/17 15:32 Hx Obtained From: Patient Hx Last Menstrual Period: 03/11/17 Onset/Duration: Gradual Onset, Lasting Days Severity Initially: Mild Severity Currently: Mild Pain Intensity: 3 Pain Scale Used: 0-10 Numeric Associated Signs/Symptoms: Positive: Hearing Loss, URI Symptoms - Allergies/Home Medications Allergies/Adverse Reactions: Allergies Allergy/AdvReac Type Severity Reaction Status Date / Time MS Bacitracin Allergy Hives Verified 03/18/17 15:26 [From Neosporin] MS Iodine [Iodine] Allergy Anaphylatic Verified 03/18/17 15:26 Shock MS Neomycin [From Neosporin] Allergy Hives Verified 03/18/17 15:26 MS Polymyxin B Allergy Hives Verified 03/18/17 15:26 [From Neosporin] IV CONTRAST Allergy Anaphylatic Uncoded 03/18/17 15:26 Shock Home Medications: Home Medications Budesonide/Formote 160/4.5(NF) [Symbicort 160/4.5 (NF)] 03/18/17 [History] PMH/Surg Hx/FS Hx/Imm Hx Previously Healthy: Yes - Surgical History Surgical History: None - Family History Known Family History: Negative: Cardiac Disease, Hypertension, Diabetes, Respiratory Disease - Social History Alcohol Use: Rare Substance Use Type: None Smoking Status (MU): Never Smoked Tobacco - Immunization History Most Recent Influenza Vaccination: 10/2016 Most Recent Tetanus Shot: UTD Most Recent Pneumonia Vaccination: N/A Review of Systems Constitutional: Negative Skin: Negative Eyes: Negative ENT: Ear Ache, Sinus Congestion Respiratory: Negative Cardiovascular: Negative Gastrointestinal: Negative Genitourinary: Negative Motor: Negative Neurovascular: Negative Musculoskeletal: Negative Neurological: Negative Psychological: Negative Is Patient Immunocompromised?: No All Other Systems Reviewed And Are Negative: Yes Physical Exam Triage Information Reviewed: Yes Appearance: Well-Appearing, No Pain Distress, Well-Nourished Vital Signs: Initial Vital Signs Temp 98.6 F 03/18/17 15:21 Pulse 95 03/18/17 15:21 Resp 18 03/18/17 15:21 BP 129/86 03/18/17 15:21 Pulse Ox 97 03/18/17 15:21 Vital Signs Reviewed: Yes Eyes: Positive: Conjunctiva Clear ENT: Positive: Nasal congestion, Uvula midline. Negative: Hearing grossly normal, Nasal drainage, TMs normal - left retracted and red, Tonsillar swelling , Tonsillar exudate, Muffled voice, Hoarse voice, Dental tenderness, Sinus tenderness Neck: Positive: Supple, Nontender Respiratory: Positive: Lungs clear, Normal breath sounds, No respiratory distress, No accessory muscle use Cardiovascular: Positive: RRR, No Murmur Musculoskeletal: Positive: ROM Intact, No Edema Neurological: Positive: Alert Psychological Exam: Normal Ear Complaint Course/Dx - Differential Dx/Diagnosis Provider Diagnoses: left otitis media. dissiness nonspecific Discharge - Discharge Plan Condition: Stable Disposition: HOME Prescriptions: Amoxicillin PO (*) [Amoxicillin 875 MG (*)] 875 mg PO BID #20 tab Meclizine HCl [Travel-Ease] 25 mg PO TID PRN #12 tablet PRN Reason: Dizziness Patient Education Materials: Ear Infection (ED), Dizziness (ED) Referrals: Jody Vale [Primary Care Provider] -
== END 2017-03-18 15:43 | disposition home or self-care (01) ==
LOC: UCCORT 11:57
DX: H66.92 Otitis media, unspecified, left ear (principal); R42 Dizziness and giddiness
CPT/HCPCS: 99212; G0463

== ENCOUNTER 2017-04-13 10:23 | Emergency (ER) | payer BC ==
[2017-04-13 10:48] VITALS: BP 118/89
--- NOTE | 2017-04-13 11:06 | UC ---
Complaint Female HPI - HPI Summary HPI Summary: Menses is 2 days late, has had some lower abd pain and cramping similar to menstrual pain she had gotten prior to BCP--no fevrs chills, some nausea no vomiting---does get pain relief with heat on lower abdomen, feels she maybe having some uti sx - History Of Current Complaint Chief Complaint: UCAbdominalPain Stated Complaint: ABD PAIN,NAUSEA,LIGHT HEADED Time Seen by Provider: 04/13/17 11:04 Hx Obtained From: Patient Hx Last Menstrual Period: 03/16/17 ?: No Onset/Duration: Sudden Onset, Lasting Days - 1, Still Present Timing: Constant Severity Initially: Moderate Severity Currently: Moderate Pain Intensity: 6 Pain Scale Used: 0-10 Numeric Character: Cramping Aggravating Factor(s): Urination Alleviating Factor(s): Position Associated Signs And Symptoms: Positive: Negative - Allergies/Home Medications Allergies/Adverse Reactions: Allergies Allergy/AdvReac Type Severity Reaction Status Date / Time bacitracin Allergy Mild Hives Verified 04/13/17 11:05 [From Neosporin ([id number])] neomycin Allergy Mild Hives Verified 04/13/17 11:05 [From Neosporin ([id number])] polymyxin B Allergy Mild Hives Verified 04/13/17 11:05 [From Neosporin ([id number])] Iodinated Contrast- Oral and Allergy Anaphylatic Verified 04/13/17 11:06 IV Dye Shock Home Medications: Home Medications Acetaminophen [APAP] 650 mg PO ONCE PRN 04/13/17 [History Confirmed 04/13/17] Ibuprofen TAB* [Advil TAB*] 400 mg PO Q6H PRN 04/13/17 [History Confirmed ] PMH/Surg Hx/FS Hx/Imm Hx Previously Healthy: No - enviromantal allergies Psychological History: Depression - Surgical History Surgical History: None - Family History Known Family History: Negative: Cardiac Disease, Hypertension, Diabetes, Respiratory Disease - Social History Occupation: Student Lives: With Family Alcohol Use: Occasionally Substance Use Type: None Smoking Status (MU): Never Smoked Tobacco - Immunization History Most Recent Influenza Vaccination: 10/2016 Most Recent Tetanus Shot: UTD Most Recent Pneumonia Vaccination: N/A Review of Systems Constitutional: Negative Skin: Negative Eyes: Negative ENT: Negative Respiratory: Negative Cardiovascular: Negative Gastrointestinal: Abdominal Pain, Nausea Genitourinary: Frequency, Urgency Motor: Negative Neurovascular: Negative Musculoskeletal: Negative Neurological: Negative Psychological: Negative Is Patient Immunocompromised?: No All Other Systems Reviewed And Are Negative: Yes Physical Exam Triage Information Reviewed: Yes Appearance: Well-Appearing, Well-Nourished, Pain Distress - mild-moderate Vital Signs: Initial Vital Signs Temp 98.6 F 04/13/17 10:39 Pulse 76 04/13/17 10:39 Resp 16 04/13/17 10:39 BP 118/89 04/13/17 10:39 Pulse Ox 100 04/13/17 10:39 Vital Signs Reviewed: Yes Eye Exam: Normal Eyes: Positive: Conjunctiva Clear ENT Exam: Normal ENT: Positive: Normal ENT inspection, Hearing grossly normal. Negative: Trismus , Muffled voice, Hoarse voice, Dental tenderness, Sinus tenderness Dental Exam: Normal Neck exam: Normal Neck: Positive: Supple, Nontender, No Lymphadenopathy Respiratory Exam: Normal Respiratory: Positive: Chest non-tender, Lungs clear, Normal breath sounds, No respiratory distress, No accessory muscle use Cardiovascular Exam: Normal Cardiovascular: Positive: RRR, No Murmur, Pulses Normal, Brisk Capillary Refill Abdominal Exam: Normal Abdomen Description: Positive: No Organomegaly, Soft, Other: - supra pubic discomfort. Negative: CVA Tenderness (R), CVA Tenderness (L), Distended, Guarding, McBurney's Point Tenderness Bowel Sounds: Positive: Present Musculoskeletal Exam: Normal Musculoskeletal: Positive: Strength Intact, ROM Intact, No Edema Neurological Exam: Normal Neurological: Positive: Alert, Muscle Tone Normal Psychological Exam: Normal Skin Exam: Normal Diagnostics - Laboratory Diagnostic Studies Completed/Ordered: ua and ua preg negative Re-Evaluation - Re-Evaluation First Eval Change: Improved Complaint Female Dx - Course Course Of Treatment: warm compress, rest ibuprofen continue meds as rx follow with pcp prn or to ed for worsening pain - Differential Dx/Diagnosis Provider Diagnoses: dysmennorrhea Discharge - Discharge Plan Condition: Stable Disposition: HOME Patient Education Materials: Ibuprofen (By mouth), Dysmenorrhea (ED), Warm Compress or Soak (ED) Referrals: Jody Vale [Primary Care Provider] - If Needed
[2017-04-13] MEDS ORDERED: Ketorolac INJ* 60 MG/2 ML VIAL IM ONE (11:22)
== END 2017-04-13 12:26 | disposition home or self-care (01) ==
LOC: UCCORT 10:23
DX: N94.6 Dysmenorrhea, unspecified (principal); Z32.02 Encounter for pregnancy test, result negative; Z88.8 Allergy status to other drugs, medicaments and biological substances; Z88.1 Allergy status to other antibiotic agents; Z91.041 Radiographic dye allergy status
CPT/HCPCS: 81003; 84702; 96372; 99211; G0463; J1885

== ENCOUNTER 2017-04-14 12:22 | Emergency (ER) | payer BC ==
[2017-04-14 12:52] VITALS: BP 124/83
[2017-04-14] MEDS ORDERED: Lidocaine 1% MPF* 2 ML VIAL ONE (14:02)
[2017-04-14] MEDS: cefTRIAXone VIAL(*) 250 MG VIAL IM ONE (14:07)
--- NOTE | 2017-04-14 14:22 | UC ---
Complaint Female HPI - HPI Summary HPI Summary: Pt c/o of low back and pelvic pain, painful sexual intercourse and painful menstrual cramps that began 2 weweks ago, along with greenish/yellow discharge. Pt states her menses was 2 days late but currently having menstrual cycle. Pt was seen yesterday for here, for UTI like symptoms and UA was negative. Pt brenden STD exposure but is sexually active with one partner. Denies history of endometriosis - History Of Current Complaint Chief Complaint: UCAbdominalPain Stated Complaint: LOWER ABD/BACK PAIN (URINARY) Time Seen by Provider: 04/14/17 12:55 Hx Obtained From: Patient Hx Last Menstrual Period: 04/14/17 ?: No Onset/Duration: Gradual Onset, Lasting Weeks, Still Present, Worse Since - onset Timing: Constant Severity Initially: Mild Severity Currently: Moderate Pain Intensity: 7 Character: Dull, Cramping Aggravating Factor(s): [place] Alleviating Factor(s): Nothing Associated Signs And Symptoms: Positive: Vaginal Discharge, Nausea - Risk Factors Ovarian Torsion Risk Factor: Reproductive Age - Allergies/Home Medications Allergies/Adverse Reactions: Allergies Allergy/AdvReac Type Severity Reaction Status Date / Time bacitracin Allergy Mild Hives Verified 04/14/17 12:52 [From Neosporin ([id number])] neomycin Allergy Mild Hives Verified 04/14/17 12:52 [From Neosporin ([id number])] polymyxin B Allergy Mild Hives Verified 04/14/17 12:52 [From Neosporin ([id number])] Iodinated Contrast- Oral and Allergy Anaphylatic Verified 04/14/17 12:52 IV Dye Shock PMH/Surg Hx/FS Hx/Imm Hx Previously Healthy: Yes - Surgical History Surgical History: None - Family History Known Family History: Negative: Cardiac Disease, Hypertension, Diabetes, Respiratory Disease - Social History Occupation: Student Lives: With Family Alcohol Use: Occasionally Substance Use Type: None Smoking Status (MU): Never Smoked Tobacco Have You Smoked in the Last Year: No - Immunization History Most Recent Influenza Vaccination: 10/2016 Most Recent Tetanus Shot: UTD Most Recent Pneumonia Vaccination: N/A Review of Systems Constitutional: Fatigue Skin: Negative Eyes: Negative ENT: Negative Respiratory: Negative Cardiovascular: Negative Gastrointestinal: Abdominal Pain, Nausea Genitourinary: Frequency, Urgency, Vaginal/Penile Burning, Vaginal/Penile Itching, Vaginal/Penile Discharge, Vaginal/Penile Pain Motor: Negative Neurovascular: Negative Musculoskeletal: Myalgia Neurological: Negative Psychological: Negative Is Patient Immunocompromised?: No All Other Systems Reviewed And Are Negative: Yes Physical Exam Triage Information Reviewed: Yes Appearance: Ill-Appearing, Pain Distress Vital Signs: Initial Vital Signs Temp 97.5 F 04/14/17 12:37 Pulse 87 04/14/17 12:37 Resp 16 04/14/17 12:37 BP 124/83 04/14/17 12:37 Pulse Ox 99 04/14/17 12:37 Vital Signs Reviewed: Yes Eye Exam: Normal ENT Exam: Normal Dental Exam: Normal Neck exam: Normal Respiratory Exam: Normal Cardiovascular Exam: Normal Abdominal Exam: Other Abdomen Description: Positive: Other: - pelvic discomfort., pt was offered a pelvic exam, pt stated her menstrual cycle was very heavy at the moment and declined pelvic exam. Pt denied fever or chills Musculoskeletal Exam: Normal Neurological Exam: Normal Psychological Exam: Normal Skin Exam: Normal Complaint Female Dx - Course Course Of Treatment: I discussed with the pt endometriosis, PID and appendicitis. - Differential Dx/Diagnosis Differential Diagnosis/HQI/PQRI: Pelvic Inflammatory Disease, , Sexually Transmitted Disease, Urinary Tract Infection Provider Diagnoses: Pelvic pain Discharge - Discharge Plan Condition: Stable Disposition: HOME Prescriptions: DOXYcycline CAP(*) [DOXYcycline 100MG CAP(*)] 100 mg PO Q12H #14 cap Ondansetron [Zofran Odt] 8 mg PO Q8H #15 tab Patient Education Materials: Pelvic Pain in Women (ED) Forms: *School Release Referrals: Jody Vale [Primary Care Provider] - As Soon As Possible Additional Instructions: Please follow up with your PCP as soon as possible. Please note, if your symptoms do not improve or they worsen, please seek care at the closest emergency department.
--- NOTE | 2017-04-16 07:24 | UC ---
- Progress Note Progress Note: Please notify pt of (+) BV metrogel vaginal eRxed
== END 2017-04-14 14:37 | disposition home or self-care (01) ==
LOC: UCCORT 12:22
DX: N76.0 Acute vaginitis (principal); R10.2 Pelvic and perineal pain; Z88.1 Allergy status to other antibiotic agents; Z91.041 Radiographic dye allergy status
CPT/HCPCS: 87480; 87491; 87510; 87591; 87660; 96372; 99212; G0463; J0696

== ENCOUNTER 2017-06-15 07:17 | Emergency (ER) | payer BC ==
[2017-06-15 07:33] VITALS: BP 117/82
--- NOTE | 2017-06-15 07:55 | UC ---
Skin Complaint HPI - HPI Summary HPI Summary: 26 yo WF c/o ear skin infection s/p right daith piercing (antonio of helix) 5 days ago, now more red, painful and tender - History of Current Complaint Chief Complaint: UCEar Time Seen by Provider: 06/15/17 07:35 Stated Complaint: RIGHT EAR SKIN COMPLAINT Hx Obtained From: Patient Hx Last Menstrual Period: 05/09/17 Onset/Duration: Sudden Onset Skin Exposure Onset/Duration: Days Ago Onset Severity: Moderate Pain Intensity: 5 - Allergy/Home Medications Allergies/Adverse Reactions: Allergies Allergy/AdvReac Type Severity Reaction Status Date / Time bacitracin Allergy Mild Hives Verified 06/15/17 07:34 [From Neosporin ([id number])] neomycin Allergy Mild Hives Verified 06/15/17 07:34 [From Neosporin ([id number])] polymyxin B Allergy Mild Hives Verified 06/15/17 07:34 [From Neosporin ([id number])] Iodinated Contrast- Oral and Allergy Anaphylatic Verified 06/15/17 07:34 IV Dye Shock nut - unspecified Allergy Anaphylatic Verified 06/15/17 07:34 Shock Review of Systems Constitutional: Negative Skin: Other - see HPI Eyes: Negative ENT: Negative Respiratory: Negative Cardiovascular: Negative Gastrointestinal: Negative Genitourinary: Negative Motor: Negative Neurovascular: Negative Musculoskeletal: Negative Neurological: Negative Psychological: Negative All Other Systems Reviewed And Are Negative: Yes PMH/Surg Hx/FS Hx/Imm Hx - Additional Past Medical History Additional PMH: none Previously Healthy: Yes - Surgical History Surgical History: None - Family History Known Family History: Negative: Cardiac Disease, Hypertension, Diabetes, Respiratory Disease - Social History Alcohol Use: Occasionally Substance Use Type: None Smoking Status (MU): Never Smoked Tobacco Have You Smoked in the Last Year: No - Immunization History Most Recent Influenza Vaccination: 10/2016 Most Recent Tetanus Shot: UTD Most Recent Pneumonia Vaccination: N/A Physical Exam Triage Information Reviewed: Yes Appearance: Pain Distress Vital Signs: Initial Vital Signs Temp 36.6 C 06/15/17 07:29 Pulse 83 06/15/17 07:29 Resp 15 06/15/17 07:29 BP 117/82 06/15/17 07:29 Pulse Ox 99 06/15/17 07:29 Eye Exam: Normal ENT Exam: Normal Dental Exam: Normal Neck exam: Normal Neck: Positive: 1 Respiratory Exam: Normal Cardiovascular Exam: Normal Abdominal Exam: Normal Musculoskeletal Exam: Normal Neurological Exam: Normal Psychological Exam: Normal Skin: Positive: significant lesion(s) - right crux of helix ring piercing in place with surrounding erythema calor and dolor, no drainage noted Course/Dx - Course Course Of Treatment: advised to get the piercing removed juve - Diagnoses Provider Diagnoses: right ear skin piercing Discharge - Sign-Out/Discharge Documenting (check all that apply): Discharge/Admit/Transfer - Discharge Plan Condition: Stable Disposition: HOME Prescriptions: Cephalexin CAP* [Keflex CAP*] 500 mg PO QID 10 Days #40 cap Patient Education Materials: Acute Wounds (ED) Referrals: Alexa Ortega MD [Primary Care Provider] - Additional Instructions: Remove daith piercing JUVE, clean area daily with peroxide, take medication as directed please go to ER if signs of infection worsen - Billing Disposition and Condition Condition: STABLE Disposition: HOME
== END 2017-06-15 08:00 | disposition home or self-care (01) ==
LOC: UCCORT 07:17
DX: Z03.89 Encounter for observation for other suspected diseases and conditions ruled out (principal); Z88.1 Allergy status to other antibiotic agents; Z91.018 Allergy to other foods
CPT/HCPCS: 99212; G0463

== ENCOUNTER 2017-06-29 18:11 | Emergency (ER) | payer BC ==
[2017-06-29 18:28] VITALS: BP 117/81
[2017-06-29] MEDS ORDERED: Albuterol/Ipratropium NEB.SOL* Albuterol 2.5 MG/Ipratropium 0.5 MG 3 ML INH ONE (18:30)
[2017-06-29] MEDS ORDERED: Albuterol 2.5 MG/3 ML NEB.SOL* (0.083%) INH ONE (19:04)
[2017-06-29] MEDS ORDERED: predniSONE TAB* 20 MG PO ONE (19:05)
--- NOTE | 2017-06-29 19:11 | UC ---
Respiratory Complaint HPI - HPI Summary HPI Summary: patient inhaled some dryer dust setting off a bout of bronchospasm - History of Current Complaint Chief Complaint: UCRespiratory Stated Complaint: ASTHMA/ASPIRATION Time Seen by Provider: 06/29/17 18:29 Hx Obtained From: Patient Hx Last Menstrual Period: 2 wks ago ?: No Onset/Duration: Sudden Onset Timing: Constant Pain Intensity: 3 Pain Scale Used: 0-10 Numeric Character: Cough: Nonproductive Aggravating Factors: Allergens Alleviating Factors: Nothing Associated Signs And Symptoms: Positive: Dyspnea - Allergies/Home Medications Allergies/Adverse Reactions: Allergies Allergy/AdvReac Type Severity Reaction Status Date / Time bacitracin Allergy Mild Hives Verified 06/29/17 18:21 [From Neosporin ([id number])] neomycin Allergy Mild Hives Verified 06/29/17 18:21 [From Neosporin ([id number])] polymyxin B Allergy Mild Hives Verified 06/29/17 18:21 [From Neosporin ([id number])] Iodinated Contrast- Oral and Allergy Anaphylatic Verified 06/29/17 18:21 IV Dye Shock iodine Allergy Anaphylatic Verified 06/29/17 18:21 Shock nut - unspecified Allergy Anaphylatic Verified 06/29/17 18:21 Shock PMH/Surg Hx/FS Hx/Imm Hx Previously Healthy: No Respiratory History: Asthma - Surgical History Surgical History: None - Family History Known Family History: Negative: Cardiac Disease, Hypertension, Diabetes, Respiratory Disease - Social History Occupation: Employed Full-time Lives: Alone Alcohol Use: Occasionally Substance Use Type: None Smoking Status (MU): Never Smoked Tobacco Have You Smoked in the Last Year: No - Immunization History Most Recent Influenza Vaccination: 10/2016 Most Recent Tetanus Shot: UTD Most Recent Pneumonia Vaccination: N/A Review of Systems Constitutional: Negative Skin: Negative Eyes: Negative ENT: Negative Respiratory: Shortness Of Breath, Cough Cardiovascular: Negative Gastrointestinal: Negative Genitourinary: Negative Motor: Negative Neurovascular: Negative Musculoskeletal: Negative Neurological: Negative Psychological: Negative Is Patient Immunocompromised?: No All Other Systems Reviewed And Are Negative: Yes Physical Exam Triage Information Reviewed: Yes Appearance: Well-Appearing, No Pain Distress, Well-Nourished Vital Signs: Initial Vital Signs Temp 98.3 F 06/29/17 18:24 Pulse 67 05/24/18 18:24 Resp 18 06/29/17 18:24 BP 117/81 06/29/17 18:24 Pulse Ox 98 06/29/17 18:24 Vital Signs Reviewed: Yes Eye Exam: Normal Eyes: Positive: Conjunctiva Clear ENT Exam: Normal ENT: Positive: Normal ENT inspection, Hearing grossly normal, Pharynx normal, TMs normal, Uvula midline. Negative: Nasal congestion, Trismus, Muffled voice, Hoarse voice, Dental tenderness, Sinus tenderness Dental Exam: Normal Neck exam: Normal Neck: Positive: Supple, Nontender, No Lymphadenopathy Respiratory Exam: Normal Respiratory: Positive: Chest non-tender, No accessory muscle use, Respiratory distress - mild, Wheezing Cardiovascular Exam: Normal Cardiovascular: Positive: RRR, No Murmur, Pulses Normal, Brisk Capillary Refill Musculoskeletal Exam: Normal Musculoskeletal: Positive: Strength Intact, ROM Intact, No Edema Neurological Exam: Normal Neurological: Positive: Alert, Muscle Tone Normal Psychological Exam: Normal Skin Exam: Normal UC Diagnostic Evaluation - Laboratory O2 Sat by Pulse Oximetry: 98 Re-Evaluation - Re-Evaluation First Eval Change: Improved - 2 nebs and prednisone---with good relief of bronchospasm Respiratory Course/Dx - Course Course Of Treatment: prednisone, albuterol, increase fluids avoid allergens follow with pcp prn - Differential Dx/Diagnosis Provider Diagnoses: acute exacebation of chronic asthma/bronchospasm Discharge - Sign-Out/Discharge Documenting (check all that apply): Discharge/Admit/Transfer - Discharge Plan Condition: Stable Disposition: HOME Prescriptions: Albuterol HFA INHALER* [Ventolin HFA Inhaler*] 2 puff INH Q4H PRN #1 mdi PRN Reason: cough/wheeze predniSONE TAB* [Deltasone 20 MG TAB*] 20 mg PO DAILY #9 tab Patient Education Materials: Bronchospasm (ED) Referrals: Alexa Ortega MD [Primary Care Provider] - If Needed - Billing Disposition and Condition Condition: STABLE Disposition: Home
== END 2017-06-29 19:34 | disposition home or self-care (01) ==
LOC: UCCORT 18:11
DX: J45.901 Unspecified asthma with (acute) exacerbation (principal); Z88.3 Allergy status to other anti-infective agents; Z91.041 Radiographic dye allergy status; Z91.018 Allergy to other foods
CPT/HCPCS: 99213; A9270-GY; G0463; J7512

== ENCOUNTER 2018-11-24 08:30 | Emergency (ER) | payer BC ==
[2018-11-24 08:55] VITALS: BP 113/80
--- NOTE | 2018-11-24 09:36 | UC ---
Hand/Wrist HPI - HPI Summary HPI Summary: 27-year-old woman comes in with chief complaint of right index finger pain and swelling and redness. About a week ago got scratched her finger. Gradually over the course of the week it's becoming red and swollen tender to palpation. It does hurt more when she attempts to fully flex it. No weakness or numbness. No fevers or chills no drainage. She is up-to-date on her tetanus shot from 2018. - History Of Current Complaint Chief Complaint: UCSkin Stated Complaint: RT INDEX FINGER COMPLAINT Time Seen by Provider: 11/24/18 09:03 Hx Last Menstrual Period: HAS HAD HER PERIOD CONSTANLY FOR 2 MONTHS Pain Intensity: 3 - Allergies/Home Medications Allergies/Adverse Reactions: Allergies Allergy/AdvReac Type Severity Reaction Status Date / Time bacitracin Allergy Mild Hives Verified 11/24/18 08:41 [From Neosporin ([id number])] neomycin Allergy Mild Hives Verified 11/24/18 08:41 [From Neosporin ([id number])] polymyxin B Allergy Mild Hives Verified 11/24/18 08:41 [From Neosporin ([id number])] Iodinated Contrast Media Allergy Anaphylatic Verified 11/24/18 08:41 [Iodinated Contrast- Oral Shock and IV Dye] iodine Allergy Anaphylatic Verified 11/24/18 08:41 Shock nut - unspecified Allergy Anaphylatic Verified 11/24/18 08:41 Shock Home Medications: Home Medications Albuterol 2.5MG/3ML (0.083%)* [Ventolin 2.5 MG/3 ML NEB.DARIAN*] 2.5 mg INH Q4H PRN 11/24/18 [History Confirmed 11/24/18] Metoprolol Tartrate 37.5 mg PO DAILY 11/24/18 [History Confirmed 11/24/18] Oral Contraceptive 1 tab PO DAILY 11/24/18 [History] metroNIDAZOLE [Flagyl] 500 mg PO BID 11/24/18 [History Confirmed 11/24/18] PMH/Surg Hx/FS Hx/Imm Hx Previously Healthy: Yes - Surgical History Surgical History: None - Family History Known Family History: Negative: Cardiac Disease, Hypertension, Diabetes, Respiratory Disease - Social History Alcohol Use: Occasionally Substance Use Type: None Smoking Status (MU): Never Smoked Tobacco Have You Smoked in the Last Year: No - Immunization History Most Recent Influenza Vaccination: 10/2016 Most Recent Tetanus Shot: 02/2017 Most Recent Pneumonia Vaccination: N/A Review of Systems All Other Systems Reviewed And Are Negative: Yes Constitutional: Positive: Negative Skin: Positive: Other - SEE HPI Eyes: Positive: Negative ENT: Positive: Negative Respiratory: Positive: Negative Cardiovascular: Positive: Negative Gastrointestinal: Positive: Negative Motor: Positive: Negative Neurovascular: Positive: Negative Musculoskeletal: Positive: Other: - SEE HPI Neurological: Positive: Negative Psychological: Positive: Negative Is Patient Immunocompromised?: No Physical Exam Triage Information Reviewed: Yes Appearance: Well-Appearing, No Pain Distress, Well-Nourished Vital Signs: Initial Vital Signs Temp 98 F 11/24/18 08:46 Pulse 72 11/24/18 08:46 Resp 14 11/24/18 08:46 BP 113/80 11/24/18 08:46 Pulse Ox 98 11/24/18 08:46 Vital Signs Reviewed: Yes Eye Exam: Normal Eyes: Positive: Conjunctiva Clear Neck: Positive: Supple Respiratory: Positive: No respiratory distress Musculoskeletal: Positive: Other: - On the radial aspect of the right index finger adjacent to the PIP there is a healing 1 cm closed laceration with surrounding erythema and some swelling which is tender to palpation. No sensation deficit normal capillary refill. Patient is full range of motion of the finger however it does cause her more pain with complete flexion of the finger. There is no streaking. Neurological: Positive: Alert Psychological: Positive: Age Appropriate Behavior Skin: Positive: Other - On the radial aspect of the right index finger adjacent to the PIP there is a healing 1 cm closed laceration with surrounding erythema and some swelling which is tender to palpation. Hand/Wrist Course/Dx - Course Course Of Treatment: Development Coach: Federico Reyes F ([id number]) House Father: RACHEL ( RACHEL) Report Date: 11/24/2018 09:08:00 Report Status: Final ====== Start of Report Content Patient Name: DENISHA BERRIOS Medical Record#: [id number] Ordering Physician: Pascual Lewis MD Acct.#: [id number] : Age: 27 Sex: F Location: [facility] Exam Date: 11/24/18907 ADM Status: REG ER Order Information: FINGER RIGHT 2ND (INDEX) Accession Number: [id number] CPT: 06369 INDICATION: Pain and erythema status post cat injury. TECHNIQUE: 3 views of the right index finger were obtained. FINDINGS: There is diffuse soft tissue swelling. The bones are in normal alignment. No fracture or radiopaque foreign body is seen. Joint spaces appear maintained. IMPRESSION: SOFT TISSUE SWELLING, NO FRACTURE OR RADIOPAQUE FOREIGN BODY IS SEEN. < Electronically signed by Federico Reyes MD in OV> 11/24/18922 Dictated By: Federico Reyes MD Dictated Date/Time: 11/24/18921 Transcribed Date/Time: 921 Copy to: CC:Rosemary KUMAR; Pascual Lewis MD Imaging - [facility] Imaging [facility] [address] [place] [address] ph [phone]) ph ([phone]) ph ([phone]) ===== End of Report Content I discussed the x-rays with the patient. Patient has full range of motion of the finger and I don't appreciate any tracking of the infection proximally at this time. Patient is up-to-date with her tetanus. We'll start the patient on Augmentin as she has no symptoms of cat scratch disease at this time with lymphadenopathy. I discussed with the patient of the she started getting lymphadenopathy she should take the azithromycin. Patient is from [place] she is visiting here in [place]. I discussed with her the need if there is any spread of infection or her symptoms worsen or do not improve she needs to follow up with a hand specialist. She states she would do this and [place] if necessary. - Differential Dx/Diagnosis Provider Diagnosis: Infected puncture wound of right index finger Discharge ED - Sign-Out/Discharge Documenting (check all that apply): Patient Departure All imaging exams completed and their final reports reviewed: Yes - Discharge Plan Condition: Stable Disposition: HOME Prescriptions: Amoxicillin/Clavulanate TAB* [Augmentin TAB 875*] 875 mg PO BID #20 tab Azithromyxin JAMES (NF) [Z-James (Zithromax) 250 mg tabs #6] 2 tab PO .TODAY, THEN 1 DAILY #6 tab Patient Education Materials: Animal Bite (ED), Cellulitis (ED), Cat Scratch Disease (ED) Referrals: Rosemary Duron PA [Primary Care Provider] - Additional Instructions: FOLLOW UP WITH YOUR ORTHOPEDIC HAND SPECIALIST IN [place] IF NOT COMPLETELY IMPROVED OR WORSE. GET REEVALUATED SOONER IF NOT IMPROVING OR YOUR CONDITION WORSENS OR ANY QUESTIONS OR CONCERNS. - Billing Disposition and Condition Condition: STABLE Disposition: Home
== END 2018-11-24 09:48 | disposition home or self-care (01) ==
LOC: UCCORT 08:30
DX: S61.230A Puncture wound without foreign body of right index finger without damage to nail, initial encounter (principal); L08.9 Local infection of the skin and subcutaneous tissue, unspecified; Z88.1 Allergy status to other antibiotic agents; Z91.018 Allergy to other foods; Z88.8 Allergy status to other drugs, medicaments and biological substances; Z91.041 Radiographic dye allergy status; X58.XXXA Exposure to other specified factors, initial encounter; Y92.9 Unspecified place or not applicable
CPT/HCPCS: 73140; 99212; G0463